=== PATIENT | male | born 1960 ===

== ENCOUNTER 2018-12-07 13:21 | Inpatient (IN) ==
[2018-12-07 14:58] LABS: Basophils % 0.2 % (0.0-0.8); Eosinophils % 0.4 % (0.00-10.9); Hematocrit 32.6 VOL% (42.0-52.0); Hemoglobin 10.8 GM/DL (14.0-18.0); Immature Granulocytes % 0.7 %; Immature Granulocytes Absolute 0.07 #; Lymphocytes # 0.4 10*3/uL (1.4-4.0); Lymphocytes % 4.5 % (21.2-54.2); Mean Corpuscular HGB Conc 33.1 GM/DL (32-36); Mean Corpuscular Hemoglobin 32 PG (27-34); Mean Platelet Volume 10.2 FL (9.6-12.0); Monocytes # 0.8 10*3/uL (0.11-0.8); Monocytes % 8.3 % (1.7-12.7); Neutrophils # 8.1 10*3/uL (1.4-7.4); Neutrophils % 85.9 % (38.7-73.9); Platelet Count 181 T/CUMM (130-400); Red Blood Count 3.43 MC/CUMM (3.8-5.5); White Blood Count 9.5 T/CUMM (4-12)
[2018-12-07 15:18] LABS: Anisocytosis 1+; Band Neutrophils 3 % (0-10); Lymphocytes 5 % (20-55); Segmented Neutrophils 80 % (50-85); Total Cells Counted 100
[2018-12-07] MEDS ORDERED: CEFTAROLINE 600 MG in SODIUM CHLORIDE 0.9% 100 ML IV STA (15:18)
[2018-12-07 15:19] LABS: Macrocytosis 1+; Platelet Estimate Normal; Polychromasia 1+
[2018-12-07 15:37] LABS: Albumin 2.3 G/DL (3.4-5.0); Bilirubin,Total 1.3 MG/DL (0.2-1.0); Calcium 7.9 MG/DL (8.5-10.1); Osmolality,Calculated 294.2 MOS/KG (273-304); Potassium 4.3 MMOL/L (3.5-5.1); Total Protein 7.8 G/DL (6.4-8.3)
[2018-12-07] MEDS ORDERED: DEXTROSE 50% 25 GM/50 ML VIAL IV PRN (16:17)
[2018-12-07] MEDS ORDERED: GLUCAGON 1 MG VIAL IM PRN (16:17)
[2018-12-07] MEDS: ENOXAPARIN 30 MG/0.3 ML SYRINGE SUBCUT SCH (19:35)
[2018-12-07] MEDS: INSULIN LISPRO 100 UNIT/ML SUBCUT SCH ×2 (19:35→22:10)
[2018-12-07] MEDS: SODIUM CHLORIDE 0.9% 1,000 ML IV SCH (19:35)
[2018-12-07] MEDS: PIPERACILLIN/TAZOBACTAM 3,375 MG in SODIUM CHLORIDE 0.9% 100 ML IV SCH (19:35)
[2018-12-07] MEDS: FLUoxetine 20 MG CAPSULE PO SCH (22:00)
[2018-12-07] MEDS: SIMVASTATIN 10 MG TABLET PO SCH (22:00)
[2018-12-08] MEDS ORDERED: VANCOMYCIN INJ 1,750 MG in SODIUM CHLORIDE 0.9% 500 ML IV SCH
[2018-12-08 00:09] LABS: Apearance,Urine Slightly Hazy (Clear); Bilirubin,Urine Negative (Negative); Blood, Urine Negative (Negative); Glucose,Urine (UA) Negative (Negative); Hyaline Casts,Urine 12 /LPF (0-3); Ketones,Urine Negative (Negative); Mucus,Urine Occasional /LPF (Occasional); Nitrite,Urine Negative (Negative); Protein,Urine 100 MG/DL; RBC,Urine 1 /HPF (0-4); Squamous Epithelial Cell,Urine Occasional /HPF (0-10); Urine Color Amber (Yellow); Urine Specific Gravity 1.012 (1.001-1.035); WBC,Urine <1 /HPF (0-6)
[2018-12-08] MEDS: SODIUM CHLORIDE 0.9% 1,000 ML IV SCH (00:32)
[2018-12-08] MEDS: PIPERACILLIN/TAZOBACTAM 3,375 MG in SODIUM CHLORIDE 0.9% 100 ML IV SCH ×2 (06:48→18:43)
[2018-12-08 06:49] LABS: Basophils % 0.2 % (0.0-0.8); Eosinophils # 0.1 10*3/uL (0.0-0.87); Hematocrit 26.4 VOL% (42.0-52.0); Immature Granulocytes % 0.9 %; Immature Granulocytes Absolute 0.08 #; Lymphocytes # 0.4 10*3/uL (1.4-4.0); Lymphocytes % 4.8 % (21.2-54.2); Mean Corpuscular Hemoglobin 32 PG (27-34); Mean Platelet Volume 10.4 FL (9.6-12.0); Monocytes # 0.8 10*3/uL (0.11-0.8); Neutrophils # 7.3 10*3/uL (1.4-7.4); Neutrophils % 84.1 % (38.7-73.9); Platelet Count 208 T/CUMM (130-400); Red Blood Count 2.75 MC/CUMM (3.8-5.5); Red Cell Distribution Width 13.1 % (9.3-17.3); White Blood Count 8.7 T/CUMM (4-12)
[2018-12-08 06:50] LABS: Hemoglobin 8.7 GM/DL (14.0-18.0)
[2018-12-08 06:59] LABS: Eosinophils 1 % (0-10); Hypochromasia 1+; Lymphocytes 3 % (20-55); Ovalocytes Slight; Platelet Estimate Adequate; Segmented Neutrophils 92 % (50-85); Total Cells Counted 100
[2018-12-08 07:00] LABS: Calcium 7.4 MG/DL (8.5-10.1); Osmolality,Calculated 296.9 MOS/KG (273-304); Potassium 3.8 MMOL/L (3.5-5.1); Risk Ratio 3.29; Thyroid Stimulating Hormone 1.01 uIU/ml (0.358-3.74); VLDL CHOLESTEROL 21.2 MG/DL
[2018-12-08] MEDS: PANTOPRAZOLE 40 MG TABLET PO SCH (12:29)
[2018-12-08] MEDS: ASPIRIN EC 81 MG TABLET PO SCH (12:29)
[2018-12-08] MEDS: MORPHINE 4 MG/1 ML VIAL IV PRN ×2 (12:29→22:13)
[2018-12-08] MEDS: ARIPiprazole 10 MG TABLET PO SCH (12:29)
[2018-12-08] MEDS: INSULIN LISPRO 100 UNIT/ML SUBCUT SCH ×3 (12:33→21:51)
[2018-12-08] MEDS: ENOXAPARIN 30 MG/0.3 ML SYRINGE SUBCUT SCH (18:34)
[2018-12-08] MEDS: FLUoxetine 20 MG CAPSULE PO SCH (21:50)
[2018-12-08] MEDS: SIMVASTATIN 10 MG TABLET PO SCH (21:51)
[2018-12-09] MEDS: SODIUM CHLORIDE 0.9% 1,000 ML IV SCH ×3 (00:13→22:19)
[2018-12-09] MEDS: PIPERACILLIN/TAZOBACTAM 3,375 MG in SODIUM CHLORIDE 0.9% 100 ML IV SCH ×2 (05:35→18:52)
[2018-12-09 06:31] LABS: Basophils % 0.2 % (0.0-0.8); Eosinophils # 0.2 10*3/uL (0.0-0.87); Eosinophils % 2.9 % (0.00-10.9); Hematocrit 24.6 VOL% (42.0-52.0); Immature Granulocytes % 1.2 %; Lymphocytes # 0.5 10*3/uL (1.4-4.0); Lymphocytes % 6.2 % (21.2-54.2); Mean Corpuscular HGB Conc 32.5 GM/DL (32-36); Mean Corpuscular Hemoglobin 32 PG (27-34); Mean Corpuscular Volume 96.9 FL (87-102); Mean Platelet Volume 10.3 FL (9.6-12.0); Monocytes # 0.7 10*3/uL (0.11-0.8); Monocytes % 8.5 % (1.7-12.7); Neutrophils # 6.8 10*3/uL (1.4-7.4); Platelet Count 207 T/CUMM (130-400); Red Blood Count 2.54 MC/CUMM (3.8-5.5); Red Cell Distribution Width 13.1 % (9.3-17.3); White Blood Count 8.4 T/CUMM (4-12)
[2018-12-09 06:46] LABS: Calcium 7.6 MG/DL (8.5-10.1); Osmolality,Calculated 302.7 MOS/KG (273-304); Potassium 3.8 MMOL/L (3.5-5.1)
[2018-12-09] MEDS: INSULIN LISPRO 100 UNIT/ML SUBCUT SCH ×4 (08:53→20:55)
[2018-12-09] MEDS ORDERED: MICROFIBRILLAR COLLAGEN POWDER 1 GM CAN TOP ONE (10:59)
[2018-12-09] MEDS ORDERED: PROPOFOL 200 MG/20 ML VIAL IV ONE (11:24)
[2018-12-09] MEDS ORDERED: PHENYLEPHRINE 1 MG/10 ML SYRINGE IV ONE (11:25)
[2018-12-09] MEDS ORDERED: SEVOFLURANE 1 UNIT/15 MINUTE INH ONE (11:25)
[2018-12-09] MEDS ORDERED: fentaNYL 100 MCG/2 ML VIAL ONE (11:25)
[2018-12-09] MEDS ORDERED: MIDAZOLAM 2 MG/2 ML VIAL ONE (11:25)
[2018-12-09] MEDS ORDERED: ONDANSETRON 4 MG/2 ML VIAL ONE (11:25)
[2018-12-09] MEDS ORDERED: SODIUM CHLORIDE 0.9% 1,000 ML IV PRN (12:15)
[2018-12-09] MEDS: ARIPiprazole 10 MG TABLET PO SCH (15:41)
[2018-12-09] MEDS: ASPIRIN EC 81 MG TABLET PO SCH (15:42)
[2018-12-09] MEDS: PANTOPRAZOLE 40 MG TABLET PO SCH (15:42)
[2018-12-09] MEDS: ENOXAPARIN 30 MG/0.3 ML SYRINGE SUBCUT SCH (17:24)
[2018-12-09] MEDS: FLUoxetine 20 MG CAPSULE PO SCH (20:55)
[2018-12-09] MEDS: SIMVASTATIN 10 MG TABLET PO SCH (20:56)
[2018-12-09] MEDS: ONDANSETRON 4 MG/2 ML VIAL IV PRN (21:01)
[2018-12-09] MEDS: MORPHINE 4 MG/1 ML VIAL IV PRN (21:01)
[2018-12-09 22:27] LABS: Hematocrit 27.2 VOL% (42.0-52.0); Hemoglobin 8.9 GM/DL (14.0-18.0)
[2018-12-10 04:43] LABS: Basophils % 0.4 % (0.0-0.8); Eosinophils # 0.3 10*3/uL (0.0-0.87); Eosinophils % 4.5 % (0.00-10.9); Hematocrit 26.3 VOL% (42.0-52.0); Hemoglobin 8.6 GM/DL (14.0-18.0); Immature Granulocytes % 1.9 %; Immature Granulocytes Absolute 0.14 #; Lymphocytes # 0.6 10*3/uL (1.4-4.0); Mean Corpuscular HGB Conc 32.7 GM/DL (32-36); Mean Corpuscular Hemoglobin 32 PG (27-34); Mean Corpuscular Volume 96.7 FL (87-102); Monocytes # 0.6 10*3/uL (0.11-0.8); Neutrophils # 5.7 10*3/uL (1.4-7.4); Neutrophils % 77.2 % (38.7-73.9); Platelet Count 235 T/CUMM (130-400); Red Blood Count 2.72 MC/CUMM (3.8-5.5); Red Cell Distribution Width 13.5 % (9.3-17.3); White Blood Count 7.3 T/CUMM (4-12)
[2018-12-10 05:04] LABS: Calcium 7.3 MG/DL (8.5-10.1); Osmolality,Calculated 309.4 MOS/KG (273-304)
[2018-12-10] MEDS: PIPERACILLIN/TAZOBACTAM 3,375 MG in SODIUM CHLORIDE 0.9% 100 ML IV SCH ×2 (06:09→18:37)
[2018-12-10] MEDS: INSULIN LISPRO 100 UNIT/ML SUBCUT SCH ×4 (10:26→21:35)
[2018-12-10] MEDS: SODIUM CHLORIDE 0.9% 1,000 ML IV SCH ×2 (11:47→23:40)
[2018-12-10] MEDS: PANTOPRAZOLE 40 MG TABLET PO SCH (11:53)
[2018-12-10] MEDS: ASPIRIN EC 81 MG TABLET PO SCH (11:54)
[2018-12-10] MEDS: ARIPiprazole 10 MG TABLET PO SCH (11:55)
[2018-12-10] MEDS: MORPHINE 4 MG/1 ML VIAL IV PRN ×2 (15:35→21:27)
[2018-12-10] MEDS: ENOXAPARIN 30 MG/0.3 ML SYRINGE SUBCUT SCH (16:58)
[2018-12-10] MEDS: FLUoxetine 20 MG CAPSULE PO SCH (21:27)
[2018-12-10] MEDS: SIMVASTATIN 10 MG TABLET PO SCH (21:35)
[2018-12-11] MEDS: PIPERACILLIN/TAZOBACTAM 3,375 MG in SODIUM CHLORIDE 0.9% 100 ML IV SCH ×2 (06:09→18:28)
[2018-12-11] MEDS: INSULIN LISPRO 100 UNIT/ML SUBCUT SCH ×4 (08:19→21:25)
[2018-12-11] MEDS: PANTOPRAZOLE 40 MG TABLET PO SCH (09:21)
[2018-12-11] MEDS: ARIPiprazole 10 MG TABLET PO SCH (09:21)
[2018-12-11] MEDS: ASPIRIN EC 81 MG TABLET PO SCH (09:21)
[2018-12-11 09:34] LABS: Basophils % 0.7 % (0.0-0.8); Eosinophils # 0.4 10*3/uL (0.0-0.87); Eosinophils % 7.7 % (0.00-10.9); Hematocrit 27.8 VOL% (42.0-52.0); Immature Granulocytes % 2.1 %; Immature Granulocytes Absolute 0.12 #; Lymphocytes # 0.6 10*3/uL (1.4-4.0); Lymphocytes % 10.9 % (21.2-54.2); Mean Corpuscular HGB Conc 32.4 GM/DL (32-36); Mean Corpuscular Hemoglobin 32 PG (27-34); Mean Corpuscular Volume 97.9 FL (87-102); Mean Platelet Volume 9.4 FL (9.6-12.0); Monocytes # 0.5 10*3/uL (0.11-0.8); Monocytes % 9.6 % (1.7-12.7); Neutrophils # 3.9 10*3/uL (1.4-7.4); Platelet Count 280 T/CUMM (130-400); Red Blood Count 2.84 MC/CUMM (3.8-5.5); Red Cell Distribution Width 13.4 % (9.3-17.3); White Blood Count 5.6 T/CUMM (4-12)
[2018-12-11 10:06] LABS: Calcium 7.7 MG/DL (8.5-10.1); Osmolality,Calculated 307.8 MOS/KG (273-304); Potassium 4.5 MMOL/L (3.5-5.1)
[2018-12-11 12:30] LABS: Eosinophils 5 % (0-10); Lymphocytes 4 % (20-55); Nucleated Red Blood Cells 5 (0-5); Segmented Neutrophils 86 % (50-85); Total Cells Counted 100
[2018-12-11 12:31] LABS: Ovalocytes Few; Platelet Estimate Normal; Polychromasia Few
[2018-12-11] MEDS: SODIUM CHLORIDE 0.9% 1,000 ML IV SCH (13:04)
[2018-12-11] MEDS: ENOXAPARIN 30 MG/0.3 ML SYRINGE SUBCUT SCH (17:28)
[2018-12-11] MEDS: FLUoxetine 20 MG CAPSULE PO SCH (21:24)
[2018-12-11] MEDS: SIMVASTATIN 10 MG TABLET PO SCH (21:24)
[2018-12-12] MEDS: SODIUM CHLORIDE 0.9% 1,000 ML IV SCH ×2 (00:32→19:08)
[2018-12-12] MEDS: PIPERACILLIN/TAZOBACTAM 3,375 MG in SODIUM CHLORIDE 0.9% 100 ML IV SCH ×2 (05:51→19:09)
[2018-12-12 06:17] LABS: Basophils % 0.8 % (0.0-0.8); Eosinophils # 0.4 10*3/uL (0.0-0.87); Eosinophils % 8.2 % (0.00-10.9); Hematocrit 26.8 VOL% (42.0-52.0); Hemoglobin 8.5 GM/DL (14.0-18.0); Immature Granulocytes % 2.8 %; Immature Granulocytes Absolute 0.15 #; Lymphocytes # 0.8 10*3/uL (1.4-4.0); Lymphocytes % 14.2 % (21.2-54.2); Mean Corpuscular HGB Conc 31.7 GM/DL (32-36); Mean Corpuscular Hemoglobin 31 PG (27-34); Mean Corpuscular Volume 98.5 FL (87-102); Mean Platelet Volume 9.1 FL (9.6-12.0); Monocytes # 0.5 10*3/uL (0.11-0.8); Monocytes % 9.9 % (1.7-12.7); Neutrophils # 3.4 10*3/uL (1.4-7.4); Neutrophils % 64.1 % (38.7-73.9); Platelet Count 293 T/CUMM (130-400); Red Blood Count 2.72 MC/CUMM (3.8-5.5); Red Cell Distribution Width 13.5 % (9.3-17.3); White Blood Count 5.3 T/CUMM (4-12)
[2018-12-12 06:35] LABS: Calcium 7.9 MG/DL (8.5-10.1); Osmolality,Calculated 304.3 MOS/KG (273-304)
[2018-12-12] MEDS: INSULIN LISPRO 100 UNIT/ML SUBCUT SCH ×4 (08:31→22:29)
[2018-12-12] MEDS ORDERED: SODIUM CHLORIDE 0.9% 1,000 ML IV PRN (09:06)
[2018-12-12] MEDS: PANTOPRAZOLE 40 MG TABLET PO SCH (10:26)
[2018-12-12] MEDS: ASPIRIN EC 81 MG TABLET PO SCH (10:27)
[2018-12-12] MEDS: ARIPiprazole 10 MG TABLET PO SCH (10:27)
[2018-12-12 19:49] LABS: Hematocrit 31.1 VOL% (42.0-52.0)
[2018-12-12 20:03] LABS: PT Patient Result 11.1 SECS
[2018-12-12] MEDS: SIMVASTATIN 10 MG TABLET PO SCH (22:24)
[2018-12-12] MEDS: FLUoxetine 20 MG CAPSULE PO SCH (22:24)
[2018-12-13] MEDS: PIPERACILLIN/TAZOBACTAM 3,375 MG in SODIUM CHLORIDE 0.9% 100 ML IV SCH (05:57)
[2018-12-13 06:19] LABS: Basophils % 0.5 % (0.0-0.8); Eosinophils # 0.5 10*3/uL (0.0-0.87); Eosinophils % 9.5 % (0.00-10.9); Hematocrit 33.2 VOL% (42.0-52.0); Hemoglobin 10.5 GM/DL (14.0-18.0); Immature Granulocytes Absolute 0.17 #; Lymphocytes # 0.9 10*3/uL (1.4-4.0); Lymphocytes % 16.2 % (21.2-54.2); Mean Corpuscular HGB Conc 31.6 GM/DL (32-36); Mean Corpuscular Hemoglobin 31 PG (27-34); Mean Corpuscular Volume 97.6 FL (87-102); Mean Platelet Volume 9.3 FL (9.6-12.0); Monocytes # 0.5 10*3/uL (0.11-0.8); Monocytes % 8.1 % (1.7-12.7); Neutrophils # 3.6 10*3/uL (1.4-7.4); Neutrophils % 62.7 % (38.7-73.9); Platelet Count 313 T/CUMM (130-400); Red Cell Distribution Width 13.9 % (9.3-17.3); White Blood Count 5.7 T/CUMM (4-12)
[2018-12-13] MEDS: INSULIN LISPRO 100 UNIT/ML SUBCUT SCH ×4 (07:52→21:59)
[2018-12-13] MEDS: ARIPiprazole 10 MG TABLET PO SCH (09:00)
[2018-12-13] MEDS: ASPIRIN EC 81 MG TABLET PO SCH (09:00)
[2018-12-13] MEDS: PANTOPRAZOLE 40 MG TABLET PO SCH (09:00)
[2018-12-13] MEDS ORDERED: MICROFIBRILLAR COLLAGEN POWDER 1 GM CAN TOP ONE (13:01)
[2018-12-13] MEDS ORDERED: PROPOFOL 200 MG/20 ML VIAL IV ONE (15:49)
[2018-12-13] MEDS ORDERED: MIDAZOLAM 2 MG/2 ML VIAL ONE (15:49)
[2018-12-13] MEDS ORDERED: DEXAMETHASONE 10 MG/1 ML VIAL ONE (15:49)
[2018-12-13] MEDS ORDERED: ONDANSETRON 4 MG/2 ML VIAL ONE (15:49)
[2018-12-13] MEDS ORDERED: fentaNYL 100 MCG/2 ML VIAL ONE (15:49)
[2018-12-13] MEDS ORDERED: SEVOFLURANE 1 UNIT/15 MINUTE INH ONE (15:49)
[2018-12-13] MEDS ORDERED: PHENYLEPHRINE 1 MG/10 ML SYRINGE IV ONE (15:50)
[2018-12-13] MEDS: MORPHINE 4 MG/1 ML VIAL IV PRN (18:00)
[2018-12-13] MEDS: CARVEDILOL 25 MG TABLET PO SCH ×2 (18:03→22:00)
[2018-12-13] MEDS: hydrALAZINE 25 MG TABLET PO SCH ×2 (18:03→22:00)
[2018-12-13] MEDS: SODIUM CHLORIDE 0.9% 1,000 ML IV SCH (21:54)
[2018-12-13] MEDS: ceFAZolin 2,000 MG in SYRINGE 1 EACH IV SCH (21:59)
[2018-12-13] MEDS: SIMVASTATIN 10 MG TABLET PO SCH (22:00)
[2018-12-13] MEDS: FLUoxetine 20 MG CAPSULE PO SCH (22:00)
[2018-12-14] MEDS: ONDANSETRON 4 MG/2 ML VIAL IV PRN ×2 (06:34→14:50)
[2018-12-14] MEDS: CARVEDILOL 25 MG TABLET PO SCH ×2 (10:35→21:01)
[2018-12-14] MEDS: ASPIRIN EC 81 MG TABLET PO SCH (10:36)
[2018-12-14] MEDS: ARIPiprazole 10 MG TABLET PO SCH (10:36)
[2018-12-14] MEDS: PANTOPRAZOLE 40 MG TABLET PO SCH (10:36)
[2018-12-14] MEDS: hydrALAZINE 25 MG TABLET PO SCH ×3 (10:36→21:01)
[2018-12-14] MEDS: ceFAZolin 2,000 MG in SYRINGE 1 EACH IV SCH ×2 (10:38→21:01)
[2018-12-14] MEDS: INSULIN LISPRO 100 UNIT/ML SUBCUT SCH ×4 (12:26→21:02)
[2018-12-14] MEDS: metOLazone 5 MG TABLET PO SCH (12:28)
[2018-12-14] MEDS: MORPHINE 4 MG/1 ML VIAL IV PRN (14:52)
[2018-12-14] MEDS: ENOXAPARIN 30 MG/0.3 ML SYRINGE SUBCUT SCH (17:13)
[2018-12-14] MEDS: FUROSEMIDE 40 MG TABLET PO SCH (17:13)
[2018-12-14] MEDS: SODIUM CHLORIDE 0.9% 1,000 ML IV SCH (19:56)
[2018-12-14] MEDS ORDERED: LOPERAMIDE 2 MG CAPSULE PO SCH (21:00)
[2018-12-14] MEDS: SIMVASTATIN 10 MG TABLET PO SCH (21:01)
[2018-12-14] MEDS: INSULIN GLARGINE 100 UNIT/ML SUBCUT SCH (21:01)
[2018-12-14] MEDS: FLUoxetine 20 MG CAPSULE PO SCH (21:01)
[2018-12-15 06:05] LABS: Basophils % 0.2 % (0.0-0.8); Eosinophils # 0.4 10*3/uL (0.0-0.87); Eosinophils % 4.4 % (0.00-10.9); Hematocrit 27.2 VOL% (42.0-52.0); Hemoglobin 8.6 GM/DL (14.0-18.0); Immature Granulocytes % 0.8 %; Immature Granulocytes Absolute 0.07 #; Lymphocytes # 1.1 10*3/uL (1.4-4.0); Lymphocytes % 12.1 % (21.2-54.2); Mean Corpuscular HGB Conc 31.6 GM/DL (32-36); Mean Corpuscular Hemoglobin 31 PG (27-34); Mean Corpuscular Volume 99.3 FL (87-102); Mean Platelet Volume 9.3 FL (9.6-12.0); Monocytes # 0.6 10*3/uL (0.11-0.8); Monocytes % 6.3 % (1.7-12.7); Neutrophils # 6.7 10*3/uL (1.4-7.4); Neutrophils % 76.2 % (38.7-73.9); Platelet Count 295 T/CUMM (130-400); Red Blood Count 2.74 MC/CUMM (3.8-5.5); Red Cell Distribution Width 13.8 % (9.3-17.3); White Blood Count 8.7 T/CUMM (4-12)
[2018-12-15 06:11] LABS: Albumin 1.7 G/DL (3.4-5.0); Bilirubin,Total 0.7 MG/DL (0.2-1.0); Calcium 7.9 MG/DL (8.5-10.1); Osmolality,Calculated 294.1 MOS/KG (273-304); Potassium 5.1 MMOL/L (3.5-5.1); Total Protein 6.6 G/DL (6.4-8.3)
[2018-12-15] MEDS: INSULIN LISPRO 100 UNIT/ML SUBCUT SCH ×4 (07:44→21:50)
[2018-12-15] MEDS ORDERED: PANTOPRAZOLE 40 MG TABLET PO SCH (09:00)
[2018-12-15] MEDS ORDERED: SILVER SULFADIAZINE 1% TOP SCH (09:00)
[2018-12-15] MEDS: CARVEDILOL 25 MG TABLET PO SCH ×2 (10:02→21:52)
[2018-12-15] MEDS: hydrALAZINE 25 MG TABLET PO SCH ×3 (10:02→21:52)
[2018-12-15] MEDS: ASPIRIN EC 81 MG TABLET PO SCH (10:02)
[2018-12-15] MEDS: ARIPiprazole 10 MG TABLET PO SCH (10:02)
[2018-12-15] MEDS: MULTIVITAMIN (CENTRUM) TABLET PO SCH (10:02)
[2018-12-15] MEDS: PANTOPRAZOLE 40 MG TABLET PO SCH (10:03)
[2018-12-15] MEDS: ceFAZolin 2,000 MG in SYRINGE 1 EACH IV SCH ×2 (10:03→21:53)
[2018-12-15] MEDS: FUROSEMIDE 40 MG TABLET PO SCH ×2 (10:03→17:30)
[2018-12-15] MEDS ORDERED: metOLazone 5 MG TABLET PO SCH (11:47)
[2018-12-15] MEDS: ENOXAPARIN 30 MG/0.3 ML SYRINGE SUBCUT SCH (17:30)
[2018-12-15] MEDS: SIMVASTATIN 10 MG TABLET PO SCH (21:52)
[2018-12-15] MEDS: FLUoxetine 20 MG CAPSULE PO SCH (21:52)
[2018-12-15] MEDS: INSULIN GLARGINE 100 UNIT/ML SUBCUT SCH (21:52)
[2018-12-16 04:28] LABS: Basophils % 0.2 % (0.0-0.8); Eosinophils # 0.5 10*3/uL (0.0-0.87); Eosinophils % 5.8 % (0.00-10.9); Hematocrit 26.6 VOL% (42.0-52.0); Hemoglobin 8.3 GM/DL (14.0-18.0); Immature Granulocytes % 0.6 %; Immature Granulocytes Absolute 0.05 #; Lymphocytes # 1.1 10*3/uL (1.4-4.0); Mean Corpuscular HGB Conc 31.2 GM/DL (32-36); Mean Corpuscular Hemoglobin 31 PG (27-34); Mean Corpuscular Volume 98.9 FL (87-102); Mean Platelet Volume 9.3 FL (9.6-12.0); Monocytes # 0.5 10*3/uL (0.11-0.8); Monocytes % 5.7 % (1.7-12.7); Neutrophils # 6.4 10*3/uL (1.4-7.4); Neutrophils % 74.7 % (38.7-73.9); Platelet Count 302 T/CUMM (130-400); Red Blood Count 2.69 MC/CUMM (3.8-5.5); Red Cell Distribution Width 13.6 % (9.3-17.3); White Blood Count 8.6 T/CUMM (4-12)
[2018-12-16 05:04] LABS: Albumin 1.8 G/DL (3.4-5.0); Bilirubin,Total 0.5 MG/DL (0.2-1.0); Calcium 7.9 MG/DL (8.5-10.1); Osmolality,Calculated 290.1 MOS/KG (273-304); Total Protein 6.7 G/DL (6.4-8.3)
[2018-12-16] MEDS ORDERED: IRON SUCROSE 300 MG in SODIUM CHLORIDE 0.9% 100 ML IV ONE (08:00)
[2018-12-16] MEDS ORDERED: ceFAZolin 2,000 MG in SYRINGE 1 EACH IV SCH (08:00)
[2018-12-16] MEDS: hydrALAZINE 25 MG TABLET PO SCH (09:35)
[2018-12-16] MEDS: CARVEDILOL 25 MG TABLET PO SCH (09:35)
[2018-12-16] MEDS: FUROSEMIDE 40 MG TABLET PO SCH (09:35)
[2018-12-16] MEDS: MULTIVITAMIN (CENTRUM) TABLET PO SCH (09:35)
[2018-12-16] MEDS: PANTOPRAZOLE 40 MG TABLET PO SCH (09:35)
[2018-12-16] MEDS: ASPIRIN EC 81 MG TABLET PO SCH (09:35)
[2018-12-16] MEDS: INSULIN LISPRO 100 UNIT/ML SUBCUT SCH (09:38)
[2018-12-16 11:45] VITALS: BP 131/78
[2018-12-16] MEDS: ARIPiprazole 10 MG TABLET PO SCH (12:06)
[2018-12-16] MEDS: metOLazone 5 MG TABLET PO SCH (12:07)
== END 2018-12-16 13:19 | disposition swing bed (61) | DRG 854 ==
LOC: N.ED 13:21 → SUATTDRO 15:19 → N.EDINP 15:19 → N.5E 17:35
PROVIDERS: ADMIT Internal Medicine; ATTEND Hospitalist

== ENCOUNTER 2019-03-05 18:18 | Observation (INO) ==
[2019-03-05] MEDS ORDERED: NICOTINE 21 MG/24 HR PATCH TRANSDERM PRN (23:06)
[2019-03-05] MEDS ORDERED: ONDANSETRON 4 MG/2 ML VIAL IV PRN (23:06)
[2019-03-05 23:34] LABS: Basophils % 0.2 % (0.0-0.8); Eosinophils # 0.3 10*3/uL (0.0-0.87); Eosinophils % 3.5 % (0.00-10.9); Hematocrit 24.5 VOL% (42.0-52.0); Hemoglobin 7.6 GM/DL (14.0-18.0); Immature Granulocytes % 0.8 %; Immature Granulocytes Absolute 0.07 #; Lymphocytes # 0.7 10*3/uL (1.4-4.0); Mean Corpuscular Volume 99.2 FL (87-102); Mean Platelet Volume 8.7 FL (9.6-12.0); Monocytes % 7.5 % (1.7-12.7); Platelet Count 295 T/CUMM (130-400); Red Blood Count 2.47 MC/CUMM (3.8-5.5); White Blood Count 8.6 T/CUMM (4-12)
[2019-03-05 23:52] LABS: Alanine Aminotransferase 16 U/L (16-61); Albumin 1.5 G/DL (3.4-5.0); Alkaline Phosphatase 202 U/L (45-117); Aspartate Amino Transferase 30 U/L (0-37); Bilirubin,Total < 0.39 MG/DL (0.2-1.0); Blood Urea Nitrogen 40 MG/DL (7-18); Calcium 8.1 MG/DL (8.5-10.1); Glucose 129 MG/DL (74-106); Osmolality,Calculated 294.1 MOS/KG (273-304); Total Protein 7.5 G/DL (6.4-8.3)
[2019-03-06] MEDS ORDERED: DEXTROSE 50% 25 GM/50 ML VIAL IV PRN (01:07)
[2019-03-06 09:14] LABS: Basophils % 0.5 % (0.0-0.8); Eosinophils # 0.4 10*3/uL (0.0-0.87); Eosinophils % 5.2 % (0.00-10.9); Hematocrit 24.7 VOL% (42.0-52.0); Hemoglobin 7.5 GM/DL (14.0-18.0); Immature Granulocytes % 0.5 %; Immature Granulocytes Absolute 0.04 #; Lymphocytes # 0.8 10*3/uL (1.4-4.0); Lymphocytes % 9.7 % (21.2-54.2); Mean Corpuscular HGB Conc 30.4 GM/DL (32-36); Mean Corpuscular Volume 100.4 FL (87-102); Mean Platelet Volume 8.8 FL (9.6-12.0); Monocytes % 7.8 % (1.7-12.7); Neutrophils % 76.3 % (38.7-73.9); Platelet Count 301 T/CUMM (130-400); Red Blood Count 2.46 MC/CUMM (3.8-5.5); Red Cell Distribution Width 14.7 % (9.3-17.3); White Blood Count 7.9 T/CUMM (4-12)
[2019-03-06] MEDS: PANTOPRAZOLE 40 MG TABLET PO SCH ×2 (09:18→20:56)
[2019-03-06] MEDS: INSULIN REGULAR 100 UNIT/ML SUBCUT SCH ×3 (09:19→20:53)
[2019-03-06 09:33] LABS: Osmolality,Calculated 297.7 MOS/KG (273-304)
[2019-03-06 09:52] LABS: Ferritin 339.4 ng/ml (26-388)
[2019-03-06 13:21] LABS: Cancer Antigen 19-9 8.2 U/ML (0-37); Carcinoembryonic Antigen 1.9 NG/ML (0.0-5.0); Prostate Specific Antigen Diag 1.6 NG/ML (0-4)
[2019-03-06] MEDS ORDERED: SODIUM CHLORIDE 0.9% 1,000 ML IV PRN (13:32)
[2019-03-06 16:13] LABS: Hematocrit 24.7 VOL% (42.0-52.0); Hemoglobin 7.4 GM/DL (14.0-18.0)
[2019-03-07 00:33] LABS: Hematocrit 26.5 VOL% (42.0-52.0); Hemoglobin 8.2 GM/DL (14.0-18.0)
[2019-03-07 04:42] LABS: Basophils % 0.4 % (0.0-0.8); Eosinophils # 0.5 10*3/uL (0.0-0.87); Eosinophils % 5.4 % (0.00-10.9); Hematocrit 25.8 VOL% (42.0-52.0); Hemoglobin 7.9 GM/DL (14.0-18.0); Immature Granulocytes % 0.9 %; Immature Granulocytes Absolute 0.08 #; Lymphocytes # 0.9 10*3/uL (1.4-4.0); Lymphocytes % 9.4 % (21.2-54.2); Mean Corpuscular HGB Conc 30.6 GM/DL (32-36); Mean Corpuscular Volume 99.2 FL (87-102); Mean Platelet Volume 8.8 FL (9.6-12.0); Monocytes % 7.1 % (1.7-12.7); Neutrophils % 76.8 % (38.7-73.9); Platelet Count 286 T/CUMM (130-400); Red Cell Distribution Width 15.3 % (9.3-17.3); White Blood Count 9.1 T/CUMM (4-12)
[2019-03-07 05:03] LABS: Osmolality,Calculated 289.1 MOS/KG (273-304)
[2019-03-07 05:07] LABS: Albumin 1.5 G/DL (3.4-5.0); Bilirubin,Direct 0.14 MG/DL (0.0-0.20); Bilirubin,Indirect 0.5 MG/DL (0.0-1.0); Bilirubin,Total 0.6 MG/DL (0.2-1.0); Total Protein 7.4 G/DL (6.4-8.3)
[2019-03-07 08:10] LABS: Hematocrit 25.4 VOL% (42.0-52.0); Hemoglobin 7.7 GM/DL (14.0-18.0)
[2019-03-07] MEDS ORDERED: LIDOCAINE 2% 5 ML VIAL ONE (09:00)
[2019-03-07] MEDS ORDERED: PROPOFOL 200 MG/20 ML VIAL IV ONE (09:00)
[2019-03-07] MEDS: PANTOPRAZOLE 40 MG TABLET PO SCH (09:56)
[2019-03-07 10:38] LABS: Total Protein (Chem) 7.4 G/DL (6.4-8.3)
[2019-03-07] MEDS: INSULIN REGULAR 100 UNIT/ML SUBCUT SCH ×2 (11:04→14:36)
[2019-03-07 16:08] LABS: Hematocrit 25.6 VOL% (42.0-52.0); Hemoglobin 7.9 GM/DL (14.0-18.0)
[2019-03-07 16:45] VITALS: BP 155/80
[2019-03-08 09:42] LABS: Albumin (SPE) 2.2 G/DL (3.2-5.3); Albumin (SPE) Rel % 29.4 %; Alpha 1 (SPE) 0.3 G/DL (0.1-0.4); Alpha 1 (SPE) Rel % 4.2 %; Alpha 2 (SPE) 0.9 G/DL (0.4-1.0); Alpha 2 (SPE) Rel % 12.4 %; Beta (SPE) 0.7 G/DL (0.5-1.1); Gamma (SPE) 3.3 G/DL (0.7-1.7)
[2019-03-09 08:04] LABS: Immuno Free Light Chain Kappa 42.05 MG/DL (0.33-1.94); Immuno Free Light Chain Lambda 27.46 MG/DL (0.57-2.63); Immuno Free Light Chain Ratio 1.53 MG/DL (0.26-1.65)
== END 2019-03-07 18:10 | disposition home or self-care (01) ==
LOC: N.5E → SUATTDRO 23:00
PROVIDERS: ADMIT Internal Medicine; ATTEND Emergency Medicine

== ENCOUNTER 2019-04-18 19:11 | Inpatient (IN) ==
[2019-04-18] MEDS ORDERED: VANCOMYCIN INJ 1,000 MG in SODIUM CHLORIDE 0.9% 250 ML IV STA (19:18)
[2019-04-18] MEDS ORDERED: VECURONIUM 10 MG VIAL IV ONE (19:22)
[2019-04-18] MEDS ORDERED: ETOMIDATE 20 MG/10 ML VIAL IV ONE (19:22)
[2019-04-18 19:45] LABS: Basophils % 0.2 % (0.0-0.8); Eosinophils # 0.1 10*3/uL (0.0-0.87); Eosinophils % 1.7 % (0.00-10.9); Hematocrit 25.1 VOL% (42.0-52.0); Hemoglobin 7.6 GM/DL (14.0-18.0); Immature Granulocytes % 2.3 %; Immature Granulocytes Absolute 0.19 #; Lymphocytes # 0.4 10*3/uL (1.4-4.0); Lymphocytes % 4.6 % (21.2-54.2); Mean Corpuscular HGB Conc 30.3 GM/DL (32-36); Mean Corpuscular Volume 100.4 FL (87-102); Mean Platelet Volume 9.6 FL (9.6-12.0); Monocytes % 3.4 % (1.7-12.7); NRBC # 0.03 10*3/uL; Neutrophils % 87.8 % (38.7-73.9); Platelet Count 175 T/CUMM (130-400); Red Cell Distribution Width 17.1 % (9.3-17.3); White Blood Count 8.3 T/CUMM (4-12)
[2019-04-18 20:04] LABS: Albumin 1.8 G/DL (3.4-5.0); Bilirubin,Total 0.4 MG/DL (0.2-1.0); Calcium 7.4 MG/DL (8.5-10.1); Osmolality,Calculated 305.5 MOS/KG (273-304); Total Protein 7.7 G/DL (6.4-8.3)
[2019-04-18 20:05] LABS: Troponin I 0.067 NG/ML (0.00-0.045)
[2019-04-18] MEDS ORDERED: FUROSEMIDE 40 MG/4 ML VIAL IV STA (20:09)
[2019-04-18 20:25] LABS: Band Neutrophils 1 % (0-10); Eosinophils 1 % (0-10); Lymphocytes 2 % (20-55); Polychromasia Few; Segmented Neutrophils 94 % (50-85); Total Cells Counted 100
[2019-04-18 20:26] LABS: Microcytosis Slight; Platelet Estimate Adequate
[2019-04-18] MEDS ORDERED: ALBUTEROL 2.5 MG/3 ML NEB RESP TX PRN (20:28)
[2019-04-18] MEDS ORDERED: ONDANSETRON 4 MG/2 ML VIAL IV PRN (20:28)
[2019-04-18] MEDS ORDERED: SODIUM CHLORIDE 0.9% 1,000 ML IV PRN (20:37)
[2019-04-18] MEDS ORDERED: VANCOMYCIN INJ 1,000 MG in SODIUM CHLORIDE 0.9% 250 ML IV ONE (20:40)
[2019-04-18] MEDS ORDERED: NOREPINEPHRINE 8 MG in SODIUM CHLORIDE 0.9% 242 ML IV PRN (20:49)
[2019-04-18] MEDS ORDERED: GLUCAGON 1 MG VIAL IM PRN (20:59)
[2019-04-18] MEDS ORDERED: DEXTROSE 50% 25 GM/50 ML VIAL IV PRN (20:59)
[2019-04-18] MEDS ORDERED: PANTOPRAZOLE 40 MG VIAL IV SCH (21:00)
[2019-04-18] MEDS: CISATRACURIUM 200 MG in SODIUM CHLORIDE 0.9% 180 ML IV SCH (21:45)
[2019-04-18] MEDS: fentaNYL INJ 1,250 MCG in SODIUM CHLORIDE 0.9% 225 ML IV PRN (21:45)
[2019-04-18] MEDS: methylPREDNISolone SOD SUC 125 MG/2 ML VIAL IV SCH (22:28)
[2019-04-18] MEDS: PROPOFOL 1,000 MG/100 ML BOTTLE IV SCH (22:31)
[2019-04-18] MEDS: PIPERACILLIN/TAZOBACTAM 3,375 MG in SODIUM CHLORIDE 0.9% 100 ML IV SCH (22:44)
[2019-04-18 22:53] LABS: INR 1.1; PT Patient Result 12.2 SECS; Partial Thromboplastin Time 36.2 SECS (0-40)
[2019-04-19] MEDS ORDERED: INSULIN LISPRO 100 UNIT/ML SUBCUT SCH
[2019-04-19] MEDS: SODIUM BICARB INJ 100 MEQ in DEXTROSE 5% NACL 0.45% 1,000 ML IV SCH ×4 (00:55→21:05)
[2019-04-19] MEDS: ALBUTEROL/IPRATROPIUM 3 ML NEB RESP TX SCH ×4 (01:06→19:03)
[2019-04-19 01:45] LABS: Basophils % 0.1 % (0.0-0.8); Eosinophils % 0.3 % (0.00-10.9); Hematocrit 22.2 VOL% (42.0-52.0); Hemoglobin 6.5 GM/DL (14.0-18.0); Immature Granulocytes % 0.4 %; Immature Granulocytes Absolute 0.03 #; Lymphocytes # 0.2 10*3/uL (1.4-4.0); Lymphocytes % 3.6 % (21.2-54.2); Mean Corpuscular HGB Conc 29.3 GM/DL (32-36); Mean Corpuscular Volume 102.8 FL (87-102); Mean Platelet Volume 9.6 FL (9.6-12.0); Monocytes % 4.2 % (1.7-12.7); Neutrophils % 91.4 % (38.7-73.9); Platelet Count 125 T/CUMM (130-400); Red Blood Count 2.16 MC/CUMM (3.8-5.5); Red Cell Distribution Width 16.9 % (9.3-17.3); White Blood Count 6.7 T/CUMM (4-12)
[2019-04-19 01:48] LABS: Calcium 6.8 MG/DL (8.5-10.1)
[2019-04-19 02:01] LABS: INR 1.2; PT Patient Result 12.7 SECS; Partial Thromboplastin Time 37.6 SECS (0-40)
[2019-04-19 02:10] LABS: Band Neutrophils 4 % (0-10); Lymphocytes 5 % (20-55); Segmented Neutrophils 87 % (50-85); Total Cells Counted 100
[2019-04-19 02:11] LABS: Anisocytosis 1+
[2019-04-19 02:12] LABS: Hypochromasia Slight; Platelet Estimate Adequate
[2019-04-19 02:17] LABS: ABG PH 7.182 (7.35-7.45)
[2019-04-19 02:18] LABS: ABG Base Excess -7.5 MMOL/L (-2.5-2.5); ABG HCO3 18.2 MMOL/L (20-26); ABG PCO2 55.3 MM HG (35-48); ABG PO2 95.7 MM HG (80-95); ABG TCO2 20.1 MMOL/L (23-27)
[2019-04-19 02:19] LABS: ABG Oxygen Saturation 92.5 % (95-100)
[2019-04-19] MEDS: INSULIN REGULAR 100 UNIT/ML IV SCH ×7 (02:33→23:36)
[2019-04-19 02:43] LABS: Amorphous Crystals,Urine Occasional /HPF (Few); Apearance,Urine CLOUDY (Clear); Bilirubin,Urine Negative (Negative); Blood, Urine Large mg/dL (Negative); Glucose,Urine (UA) 50 mg/dL (Negative); Ketones,Urine Negative (Negative); Mucus,Urine Occasional /LPF (Occasional); Nitrite,Urine Negative (Negative); Protein,Urine 100 MG/DL; RBC,Urine 41 /HPF (0-4); Squamous Epithelial Cell,Urine Occasional /HPF (0-10); Urine Color Yellow (Yellow); Urine Urobilinogen < 2.0 EU/DL (0.2-1.0); WBC,Urine 16 /HPF (0-6)
[2019-04-19] MEDS ORDERED: SODIUM BICARBONATE 50 MEQ/50 ML VIAL IV ONE (02:52)
[2019-04-19 04:29] LABS: ABG Base Excess -7.1 MMOL/L (-2.5-2.5); ABG HCO3 18.6 MMOL/L (20-26); ABG Oxygen Saturation 97.1 % (95-100); ABG PCO2 48.1 MM HG (35-48); ABG PH 7.235 (7.35-7.45)
[2019-04-19] MEDS: methylPREDNISolone SOD SUC 125 MG/2 ML VIAL IV SCH ×3 (05:31→21:48)
[2019-04-19] MEDS ORDERED: POTASSIUM CHLORIDE RIDER 100 ML IV PRN (05:58)
[2019-04-19] MEDS ORDERED: MAGNESIUM SULF RIDER 1 GM in PREMIX 1 EACH IV PRN (05:59)
[2019-04-19 06:27] LABS: Basophils % 0.2 % (0.0-0.8); Hematocrit 24.9 VOL% (42.0-52.0); Hemoglobin 7.7 GM/DL (14.0-18.0); Immature Granulocytes % 0.3 %; Immature Granulocytes Absolute 0.02 #; Lymphocytes # 0.3 10*3/uL (1.4-4.0); Mean Corpuscular HGB Conc 30.9 GM/DL (32-36); Mean Corpuscular Volume 98.4 FL (87-102); Mean Platelet Volume 10.1 FL (9.6-12.0); Monocytes % 2.5 % (1.7-12.7); Platelet Count 126 T/CUMM (130-400); Red Blood Count 2.53 MC/CUMM (3.8-5.5); Red Cell Distribution Width 17.4 % (9.3-17.3); White Blood Count 6.3 T/CUMM (4-12)
[2019-04-19 06:30] LABS: INR 1.2; PT Patient Result 12.7 SECS; Partial Thromboplastin Time 37.6 SECS (0-40)
[2019-04-19 06:52] LABS: Calcium 7.1 MG/DL (8.5-10.1); Osmolality,Calculated 310.1 MOS/KG (273-304)
[2019-04-19 07:09] LABS: Anisocytosis 2+; Band Neutrophils 21 % (0-10); Lymphocytes 2 % (20-55); Platelet Estimate Adequate; Polychromasia Slight; Segmented Neutrophils 77 % (50-85); Total Cells Counted 100
[2019-04-19 07:10] LABS: Macrocytosis 1+; Poikilocytosis Slight
[2019-04-19] MEDS: fentaNYL INJ 1,250 MCG in SODIUM CHLORIDE 0.9% 225 ML IV PRN ×2 (08:00→17:30)
[2019-04-19 08:26] LABS: Hematocrit 25.9 VOL% (42.0-52.0)
[2019-04-19] MEDS ORDERED: PANTOPRAZOLE 40 MG VIAL IV SCH (09:00)
[2019-04-19] MEDS: PIPERACILLIN/TAZOBACTAM 3,375 MG in SODIUM CHLORIDE 0.9% 100 ML IV SCH ×2 (10:04→21:50)
[2019-04-19 10:24] LABS: Amorphous Crystals,Urine Occasional /HPF (Few); Apearance,Urine CLOUDY (Clear); Bacteria,Urine Many /HPF (Few); Bilirubin,Urine Negative (Negative); Blood, Urine Moderate mg/dL (Negative); Glucose,Urine (UA) 50 mg/dL (Negative); Ketones,Urine Negative (Negative); Mucus,Urine Occasional /LPF (Occasional); Nitrite,Urine Negative (Negative); Protein,Urine 100 MG/DL; RBC,Urine 30 /HPF (0-4); Red Blood Cell Casts,Urine 13 /LPF (<1); Urine Color Yellow (Yellow); Urine Specific Gravity 1.012 (1.001-1.035); Urine Urobilinogen < 2.0 EU/DL (0.2-1.0); WBC,Urine 76 /HPF (0-6)
[2019-04-19 13:10] LABS: Hematocrit 25.4 VOL% (42.0-52.0); Hemoglobin 7.9 GM/DL (14.0-18.0); Immature Granulocytes % 0.4 %; Immature Granulocytes Absolute 0.02 #; Lymphocytes # 0.2 10*3/uL (1.4-4.0); Lymphocytes % 3.9 % (21.2-54.2); Mean Corpuscular HGB Conc 31.1 GM/DL (32-36); Mean Corpuscular Volume 96.9 FL (87-102); Mean Platelet Volume 9.5 FL (9.6-12.0); Monocytes % 1.3 % (1.7-12.7); Neutrophils % 94.4 % (38.7-73.9); Platelet Count 120 T/CUMM (130-400); Red Blood Count 2.62 MC/CUMM (3.8-5.5); Red Cell Distribution Width 17.3 % (9.3-17.3); White Blood Count 5.4 T/CUMM (4-12)
[2019-04-19 13:19] LABS: INR 1.2; PT Patient Result 12.9 SECS; Partial Thromboplastin Time 37.1 SECS (0-40)
[2019-04-19 13:34] LABS: Calcium 6.9 MG/DL (8.5-10.1); Osmolality,Calculated 311.1 MOS/KG (273-304)
[2019-04-19 14:34] LABS: Albumin 1.5 G/DL (3.4-5.0); Bilirubin,Direct 0.17 MG/DL (0.0-0.20); Bilirubin,Indirect 0.2 MG/DL (0.0-1.0); Bilirubin,Total 0.4 MG/DL (0.2-1.0); Total Protein 6.6 G/DL (6.4-8.3)
[2019-04-19 14:54] LABS: Band Neutrophils 2 % (0-10); Lymphocytes 5 % (20-55); Segmented Neutrophils 91 % (50-85)
[2019-04-19 14:55] LABS: Platelet Estimate Decreased; Total Cells Counted 100
[2019-04-19 14:56] LABS: Anisocytosis 2+; Burr Cells 2+; Polychromasia Few
[2019-04-19 14:57] LABS: Macrocytosis Slight
[2019-04-19] MEDS: PROPOFOL 1,000 MG/100 ML BOTTLE IV SCH ×2 (15:00→22:02)
[2019-04-19 18:43] LABS: Basophils % 0.2 % (0.0-0.8); Hematocrit 24.7 VOL% (42.0-52.0); Hemoglobin 7.8 GM/DL (14.0-18.0); Immature Granulocytes % 0.5 %; Immature Granulocytes Absolute 0.03 #; Lymphocytes # 0.3 10*3/uL (1.4-4.0); Lymphocytes % 4.3 % (21.2-54.2); Mean Corpuscular HGB Conc 31.6 GM/DL (32-36); Mean Corpuscular Volume 96.9 FL (87-102); Mean Platelet Volume 9.9 FL (9.6-12.0); Monocytes % 1.4 % (1.7-12.7); Neutrophils % 93.6 % (38.7-73.9); Platelet Count 113 T/CUMM (130-400); Red Blood Count 2.55 MC/CUMM (3.8-5.5); White Blood Count 6.6 T/CUMM (4-12)
[2019-04-19 18:57] LABS: INR 1.2; Partial Thromboplastin Time 37.8 SECS (0-40)
[2019-04-19 19:14] LABS: Calcium 6.9 MG/DL (8.5-10.1); Osmolality,Calculated 314.1 MOS/KG (273-304)
[2019-04-19 21:13] LABS: Band Neutrophils 3 % (0-10); Eosinophils 1 % (0-10); Lymphocytes 3 % (20-55); Platelet Estimate Decreased; Polychromasia 1+; Segmented Neutrophils 92 % (50-85)
[2019-04-19 21:14] LABS: Anisocytosis 2+; Hypochromasia 2+
[2019-04-19 21:15] LABS: Total Cells Counted 100
[2019-04-19] MEDS: PANTOPRAZOLE 40 MG VIAL IV SCH (21:45)
[2019-04-19] MEDS: CISATRACURIUM 200 MG in SODIUM CHLORIDE 0.9% 180 ML IV SCH (22:42)
[2019-04-20] MEDS: CISATRACURIUM 200 MG in SODIUM CHLORIDE 0.9% 180 ML IV SCH ×3 (00:15→22:51)
[2019-04-20] MEDS: ALBUTEROL/IPRATROPIUM 3 ML NEB RESP TX SCH ×4 (00:42→19:27)
[2019-04-20 01:24] LABS: Basophils % 0.1 % (0.0-0.8); Hematocrit 24.1 VOL% (42.0-52.0); Hemoglobin 7.5 GM/DL (14.0-18.0); Immature Granulocytes % 0.3 %; Immature Granulocytes Absolute 0.02 #; Lymphocytes # 0.3 10*3/uL (1.4-4.0); Lymphocytes % 4.4 % (21.2-54.2); Mean Corpuscular HGB Conc 31.1 GM/DL (32-36); Mean Corpuscular Volume 96.8 FL (87-102); Mean Platelet Volume 10.2 FL (9.6-12.0); Monocytes % 1.6 % (1.7-12.7); Neutrophils % 93.6 % (38.7-73.9); Platelet Count 117 T/CUMM (130-400); Red Blood Count 2.49 MC/CUMM (3.8-5.5); White Blood Count 7.7 T/CUMM (4-12)
[2019-04-20 01:34] LABS: INR 1.2; PT Patient Result 13.5 SECS; Partial Thromboplastin Time 37.5 SECS (0-40)
[2019-04-20 01:42] LABS: Calcium 6.8 MG/DL (8.5-10.1)
[2019-04-20 01:48] LABS: Segmented Neutrophils 100 % (50-85); Total Cells Counted 100
[2019-04-20 01:49] LABS: Anisocytosis 1+; Microcytosis 1+
[2019-04-20 01:51] LABS: Ovalocytes Slight; Platelet Estimate Adequate
[2019-04-20] MEDS: fentaNYL INJ 1,250 MCG in SODIUM CHLORIDE 0.9% 225 ML IV PRN (02:50)
[2019-04-20] MEDS: INSULIN REGULAR 100 UNIT/ML IV SCH ×4 (03:28→16:27)
[2019-04-20 04:00] LABS: ABG Base Excess -5.1 MMOL/L (-2.5-2.5); ABG HCO3 20.1 MMOL/L (20-26); ABG Oxygen Saturation 95.4 % (95-100); ABG PCO2 42.3 MM HG (35-48); ABG PH 7.302 (7.35-7.45); ABG PO2 89.3 MM HG (80-95); ABG TCO2 19.7 MMOL/L (23-27)
[2019-04-20] MEDS: SODIUM BICARB INJ 100 MEQ in DEXTROSE 5% NACL 0.45% 1,000 ML IV SCH ×3 (04:10→22:44)
[2019-04-20] MEDS ORDERED: NOREPINEPHRINE 16 MG in SODIUM CHLORIDE 0.9% 234 ML IV PRN (04:29)
[2019-04-20] MEDS: PROPOFOL 1,000 MG/100 ML BOTTLE IV SCH ×2 (05:51→22:16)
[2019-04-20 06:58] LABS: Calcium 6.7 MG/DL (8.5-10.1); Osmolality,Calculated 313.1 MOS/KG (273-304)
[2019-04-20] MEDS ORDERED: SODIUM CHLORIDE 0.9% 1,000 ML IV PRN (07:10)
[2019-04-20 07:18] LABS: Basophils % 0.1 % (0.0-0.8); Hematocrit 26.4 VOL% (42.0-52.0); Hemoglobin 8.1 GM/DL (14.0-18.0); Immature Granulocytes % 0.8 %; Immature Granulocytes Absolute 0.09 #; Lymphocytes # 0.3 10*3/uL (1.4-4.0); Mean Corpuscular HGB Conc 30.7 GM/DL (32-36); Mean Corpuscular Volume 98.1 FL (87-102); Mean Platelet Volume 10.3 FL (9.6-12.0); Monocytes % 2.3 % (1.7-12.7); Neutrophils % 93.8 % (38.7-73.9); Platelet Count 143 T/CUMM (130-400); Red Blood Count 2.69 MC/CUMM (3.8-5.5); White Blood Count 11.5 T/CUMM (4-12)
[2019-04-20 07:41] LABS: INR 1.2; Partial Thromboplastin Time 36.4 SECS (0-40)
[2019-04-20 07:48] LABS: Band Neutrophils 22 % (0-10); Lymphocytes 3 % (20-55); Platelet Estimate Adequate; Segmented Neutrophils 75 % (50-85); Total Cells Counted 100
[2019-04-20 07:50] LABS: Anisocytosis 1+
[2019-04-20 07:52] LABS: Macrocytosis 1+
[2019-04-20] MEDS: PANTOPRAZOLE 40 MG VIAL IV SCH ×2 (08:22→20:51)
[2019-04-20] MEDS: methylPREDNISolone SOD SUC 125 MG/2 ML VIAL IV SCH ×2 (08:30→20:47)
[2019-04-20] MEDS: PIPERACILLIN/TAZOBACTAM 3,375 MG in SODIUM CHLORIDE 0.9% 100 ML IV SCH ×2 (08:58→20:53)
[2019-04-20 10:30] LABS: ABG Base Excess -6.5 MMOL/L (-2.5-2.5); ABG Oxygen Saturation 93.3 % (95-100); ABG PCO2 45.2 MM HG (35-48); ABG PH 7.263 (7.35-7.45); ABG PO2 80.3 MM HG (80-95); ABG TCO2 18.9 MMOL/L (23-27)
[2019-04-20 10:31] LABS: Basophils % 0.1 % (0.0-0.8); Hematocrit 29.1 VOL% (42.0-52.0); Hemoglobin 9.4 GM/DL (14.0-18.0); Immature Granulocytes % 0.4 %; Immature Granulocytes Absolute 0.06 #; Lymphocytes # 0.3 10*3/uL (1.4-4.0); Lymphocytes % 2.2 % (21.2-54.2); Mean Corpuscular HGB Conc 32.3 GM/DL (32-36); Mean Corpuscular Volume 94.8 FL (87-102); Mean Platelet Volume 10.4 FL (9.6-12.0); Monocytes % 2.8 % (1.7-12.7); NRBC # 0.03 10*3/uL; Neutrophils % 94.5 % (38.7-73.9); Platelet Count 182 T/CUMM (130-400); Red Blood Count 3.07 MC/CUMM (3.8-5.5); Red Cell Distribution Width 17.7 % (9.3-17.3); White Blood Count 15.4 T/CUMM (4-12)
[2019-04-20 10:38] LABS: INR 1.2; PT Patient Result 12.9 SECS
[2019-04-20 10:54] LABS: Alanine Aminotransferase 31 U/L (16-61); Albumin 1.8 G/DL (3.4-5.0); Alkaline Phosphatase 184 U/L (45-117); Aspartate Amino Transferase 61 U/L (0-37); Bilirubin,Total < 0.39 MG/DL (0.2-1.0); Blood Urea Nitrogen 85 MG/DL (7-18); CKMB % 6.3 %; Calcium 6.8 MG/DL (8.5-10.1); Glucose 207 MG/DL (74-106); Total Protein 7.3 G/DL (6.4-8.3)
[2019-04-20 10:55] LABS: Troponin I 0.053 NG/ML (0.00-0.045)
[2019-04-20 10:58] LABS: Anisocytosis 1+; Band Neutrophils 18 % (0-10); Lymphocytes 1 % (20-55); Nucleated Red Blood Cells 2 (0-5); Platelet Estimate Normal; Poikilocytosis Slight; Segmented Neutrophils 77 % (50-85); Smudge Cells Few; Total Cells Counted 100
[2019-04-20 10:59] LABS: Macrocytosis 1+
[2019-04-20 16:51] LABS: Basophils % 0.2 % (0.0-0.8); Hematocrit 32.4 VOL% (42.0-52.0); Hemoglobin 10.3 GM/DL (14.0-18.0); Immature Granulocytes Absolute 0.13 #; Lymphocytes # 0.3 10*3/uL (1.4-4.0); Lymphocytes % 2.1 % (21.2-54.2); Mean Corpuscular HGB Conc 31.8 GM/DL (32-36); Mean Corpuscular Volume 95.6 FL (87-102); Mean Platelet Volume 10.6 FL (9.6-12.0); Monocytes % 2.8 % (1.7-12.7); NRBC # 0.05 10*3/uL; Neutrophils % 93.9 % (38.7-73.9); Platelet Count 177 T/CUMM (130-400); Red Blood Count 3.39 MC/CUMM (3.8-5.5); Red Cell Distribution Width 17.3 % (9.3-17.3); White Blood Count 13.2 T/CUMM (4-12)
[2019-04-20 17:03] LABS: INR 1.2; PT Patient Result 13.2 SECS; Partial Thromboplastin Time 34.2 SECS (0-40)
[2019-04-20 17:09] LABS: Calcium 6.8 MG/DL (8.5-10.1); Osmolality,Calculated 313.1 MOS/KG (273-304)
[2019-04-20 17:31] LABS: Band Neutrophils 2 % (0-10); Hypochromasia Slight; Lymphocytes 1 % (20-55); Platelet Estimate Normal; Segmented Neutrophils 97 % (50-85); Total Cells Counted 100
[2019-04-20] MEDS: INSULIN REGULAR 100 UNIT/ML SUBCUT SCH ×2 (19:30→23:50)
[2019-04-21] MEDS: ALBUTEROL/IPRATROPIUM 3 ML NEB RESP TX SCH ×4 (01:05→19:15)
[2019-04-21] MEDS: INSULIN REGULAR 100 UNIT/ML SUBCUT SCH ×5 (03:34→19:50)
[2019-04-21 03:46] LABS: ABG Base Excess -5.5 MMOL/L (-2.5-2.5); ABG HCO3 19.9 MMOL/L (20-26); ABG Oxygen Saturation 97.2 % (95-100); ABG PCO2 39.5 MM HG (35-48); ABG PH 7.318 (7.35-7.45); ABG TCO2 18.5 MMOL/L (23-27)
[2019-04-21 04:06] LABS: Calcium 6.6 MG/DL (8.5-10.1)
[2019-04-21 04:17] LABS: Basophils % 0.1 % (0.0-0.8); Hemoglobin 9.6 GM/DL (14.0-18.0); Immature Granulocytes % 1.2 %; Immature Granulocytes Absolute 0.15 #; Lymphocytes # 0.4 10*3/uL (1.4-4.0); Mean Corpuscular Volume 96.2 FL (87-102); Mean Platelet Volume 10.4 FL (9.6-12.0); Monocytes % 3.6 % (1.7-12.7); NRBC # 0.03 10*3/uL; Neutrophils % 92.1 % (38.7-73.9); Platelet Count 157 T/CUMM (130-400); Red Blood Count 3.12 MC/CUMM (3.8-5.5); Red Cell Distribution Width 17.8 % (9.3-17.3)
[2019-04-21 05:04] LABS: Lymphocytes 3 % (20-55); Platelet Estimate Adequate; Segmented Neutrophils 95 % (50-85); Total Cells Counted 100
[2019-04-21] MEDS: INSULIN GLARGINE 100 UNIT/ML SUBCUT SCH (08:28)
[2019-04-21] MEDS: methylPREDNISolone SOD SUC 125 MG/2 ML VIAL IV SCH ×2 (08:29→21:01)
[2019-04-21] MEDS: PIPERACILLIN/TAZOBACTAM 3,375 MG in SODIUM CHLORIDE 0.9% 100 ML IV SCH ×2 (08:29→20:53)
[2019-04-21] MEDS: PANTOPRAZOLE 40 MG VIAL IV SCH ×2 (08:32→20:57)
[2019-04-21] MEDS: SODIUM BICARB INJ 100 MEQ in DEXTROSE 5% NACL 0.45% 1,000 ML IV SCH (12:52)
[2019-04-21] MEDS: CARVEDILOL 3.125 MG TABLET PO SCH ×2 (12:53→21:09)
[2019-04-21] MEDS: hydrALAZINE 20 MG/1 ML VIAL IV PRN (19:09)
[2019-04-21] MEDS: PROPOFOL 1,000 MG/100 ML BOTTLE IV SCH (22:27)
[2019-04-21] MEDS ORDERED: LABETALOL 20 MG/4 ML SYRINGE IV ONE (23:18)
[2019-04-22] MEDS: ALBUTEROL/IPRATROPIUM 3 ML NEB RESP TX SCH ×4 (00:10→18:49)
[2019-04-22] MEDS: INSULIN REGULAR 100 UNIT/ML SUBCUT SCH ×6 (00:42→22:32)
[2019-04-22] MEDS: hydrALAZINE 20 MG/1 ML VIAL IV PRN ×3 (02:44→15:50)
[2019-04-22] MEDS: SODIUM BICARB INJ 100 MEQ in DEXTROSE 5% NACL 0.45% 1,000 ML IV SCH ×3 (02:45→19:30)
[2019-04-22] MEDS ORDERED: CARVEDILOL 25 MG TABLET PO ONE (03:46)
[2019-04-22 04:03] LABS: ABG Base Excess -2.6 MMOL/L (-2.5-2.5); ABG HCO3 22.3 MMOL/L (20-26); ABG Oxygen Saturation 98.8 % (95-100); ABG PCO2 39.8 MM HG (35-48); ABG PH 7.361 (7.35-7.45); ABG TCO2 20.4 MMOL/L (23-27)
[2019-04-22 04:07] LABS: Basophils % 0.2 % (0.0-0.8); Hematocrit 32.3 VOL% (42.0-52.0); Immature Granulocytes % 1.6 %; Lymphocytes # 0.4 10*3/uL (1.4-4.0); Lymphocytes % 2.9 % (21.2-54.2); Mean Corpuscular Volume 96.7 FL (87-102); NRBC # 0.03 10*3/uL; Neutrophils % 92.3 % (38.7-73.9); Platelet Count 137 T/CUMM (130-400); Red Blood Count 3.34 MC/CUMM (3.8-5.5); Red Cell Distribution Width 17.6 % (9.3-17.3); White Blood Count 12.8 T/CUMM (4-12)
[2019-04-22 04:34] LABS: Calcium 6.8 MG/DL (8.5-10.1); Osmolality,Calculated 327.8 MOS/KG (273-304)
[2019-04-22 06:51] LABS: Acanthocytes Few; Band Neutrophils 3 % (0-10); Hypochromasia 1+; Lymphocytes 4 % (20-55); Metamyelocytes 3 %; Myelocytes 2 %; Platelet Estimate Decreased; Segmented Neutrophils 86 % (50-85); Total Cells Counted 100
[2019-04-22] MEDS: methylPREDNISolone SOD SUC 125 MG/2 ML VIAL IV SCH ×2 (08:43→22:34)
[2019-04-22] MEDS: PANTOPRAZOLE 40 MG VIAL IV SCH ×2 (08:46→22:33)
[2019-04-22] MEDS: CARVEDILOL 3.125 MG TABLET PO SCH (08:48)
[2019-04-22] MEDS: PIPERACILLIN/TAZOBACTAM 3,375 MG in SODIUM CHLORIDE 0.9% 100 ML IV SCH ×2 (08:49→22:33)
[2019-04-22] MEDS: INSULIN GLARGINE 100 UNIT/ML SUBCUT SCH (08:50)
[2019-04-22] MEDS: MANNITOL 25 GM in PREMIX 1 EACH IV SCH ×2 (09:26→15:50)
[2019-04-22] MEDS: CARVEDILOL 12.5 MG TABLET PO SCH ×2 (09:26→22:32)
[2019-04-22] MEDS ORDERED: cloNIDine 0.3 MG/24 HR PATCH TRANSDERM SCH (09:30)
[2019-04-22] MEDS: PROPOFOL 1,000 MG/100 ML BOTTLE IV SCH ×2 (09:42→16:50)
[2019-04-22] MEDS: MORPHINE 4 MG/1 ML VIAL IV PRN ×3 (20:20→22:58)
[2019-04-22] MEDS: LORazepam 2 MG/1 ML VIAL IV PRN ×2 (21:01→21:51)
[2019-04-22 22:07] VITALS: BP 155/63
[2019-04-23] MEDS: ALBUTEROL/IPRATROPIUM 3 ML NEB RESP TX SCH (00:24)
[2019-04-23] MEDS: MANNITOL 25 GM in PREMIX 1 EACH IV SCH (02:18)
[2019-04-23] MEDS: INSULIN REGULAR 100 UNIT/ML SUBCUT SCH (02:19)
== END 2019-04-22 23:06 | disposition expired | DRG 207 ==
LOC: EDUNIT# → EDBD → N.ED 19:11 → N.ICU 20:23 → N.EDINP 20:28 → N.ICU 20:59
PROVIDERS: ADMIT Internal Medicine; ATTEND Internal Medicine